=== PATIENT | female | born 1995 | race Caucasian/White ===

== ENCOUNTER 2017-08-28 07:39 | Emergency (ER) | payer SELFPAY ==
[~2017-08-28] VITALS: Ht 154.9 cm; Wt 58.1 kg
[~2017-08-28 07:39] MED LIST: CYCLOBENZAPRINE10 MG PO; PERCOCET 325 MG1 TA2 PO
== END 2017-08-28 08:51 | disposition home or self-care (01) ==
LOC: ED 07:39
DX: J02.9 Acute pharyngitis, unspecified (principal); F17.200 Nicotine dependence, unspecified, uncomplicated; Z88.0 Allergy status to penicillin

== ENCOUNTER 2018-09-06 18:00 | Emergency (ER) | payer SELFPAY ==
[~2018-09-06] VITALS: Wt 65.8 kg
[~2018-09-06 18:00] MED LIST changes: +NORCO 5-325 TA1 EACH PO
[2018-09-06] MEDS ORDERED: TESSALON PERLE100 M1 PO (19:53)
[2018-09-06] MEDS ORDERED: PROAIR HFA8.5 GM INH (19:53)
== END 2018-09-06 20:00 | disposition home or self-care (01) ==
LOC: ED 18:00
DX: R05 Cough (principal); R06.02 Shortness of breath; R06.00 Dyspnea, unspecified; Z88.0 Allergy status to penicillin

== ENCOUNTER 2021-02-28 19:05 | Emergency (ER) | payer SELFPAY ==
[~2021-02-28] VITALS: Wt 65.8 kg
[~2021-02-28 19:05] MED LIST changes: +PROAIR HFA8.5 GM INH; +TESSALON PERLE100 M1 PO
[2021-02-28 19:43] LABS: HEMATOCRIT 37.7 % (37.0-47.0); MEAN CELL VOLUME 87.9 fl (81.0-99.0); MEAN CORPUSCULAR HGB 28.7 pg (27.0-31.0); MEAN CORPUSCULAR HGB CONC 32.6 g/dl (33.0-37.0); PLATELET COUNT AUTOMATED 140 10*3/uL (130-400); RED BLOOD COUNT 4.29 10*6/uL (4.10-5.10); RED CELL DISTRI WIDTH 12.5 % (0-14.5); WHITE BLOOD COUNT 3.1 10*3/uL (4.8-10.8)
[2021-02-28 19:57] LABS: ALKALINE PHOSPHATASE 70 U/L (45-117); BUN 11 mg/dl (7-24); CHLORIDE 105 mmol/L (98-107); CREATININE 0.88 mg/dL (0.55-1.02); POTASSIUM 3.7 mmol/L (3.5-5.1); SGOT/AST 27 IU/L (3-35); SGPT/ALT 30 U/L (12-78); SODIUM 136 mmol/L (136-145); TOTAL PROTEIN 7.7 gm/dL (6.4-8.2)
[2021-02-28 20:02] LABS: BASOPHILS 1 % (0-1); PLATELET SUFFICIENCY NORMAL (NORMAL); TOTAL CELLS COUNTED 100 #CELLS
== END 2021-02-28 20:35 | disposition home or self-care (01) ==
LOC: ED 19:05
PROVIDERS: Internal Medicine
DX: U07.1 COVID-19 (principal); Z88.0 Allergy status to penicillin